=== PATIENT | female | born 1940 | race Caucasian/White ===

== ENCOUNTER 2025-02-17 13:34 | Emergency (ER) | payer MEDICARE, BC, SELFPAY ==
--- OUTSIDE RECORDS SUMMARY | 2025-02-17 13:37 | XMS_ITS ---
Author Organization [facility] Care Team Providers Care Senior Assistant Manager Name Role Phone Roger Krueger Unavailable Unavailable Allergies and adverse reactions No Known Allergies Care Team Name Role Address Phone Organization Dates [place] , [address], [place] (Office): : : : [facility] 10/22/2014 - 10/30/2014 Immunizations Immunization Status Vaccine Details Vaccine Code CodeSystem Date Notes TB 1 Step Mantoux (PPD) completed tuberculin skin test; unspecified formulation lotNumber: [id number] expiry: 01/25/2016 Mfg: [employer] Given 0.1 ml Left Forearm intradermally 98 CVX created date: 10/23/2014 consent date: 10/23/2014 administer ed date: 10/23/2014 Educated by roberto on 10/22/2014 Mental Status Section Date Assessment Total Score Description 10/30/2014 BIMS 15 cognitively int act PHQ-9 02 minimal depress ion 10/29/2014 BIMS 15 cognitively int act PHQ-9 02 minimal depress ion Reason for Referral No Reasons for Referral Entered Social History Social History Observation Description Start Date End Date Code Code System Current Smoking Status Tobacco smoking consumption unknown [id number] SNOMED CT Sex Assigned At Female 1940 25845-2 [facility] Gender Identity Vital Signs Code Code System Vitals Name Values and Units Timing Information 19629-0 [facility] Pain Level Value=5.0 10/30/2014 8462-4 [facility] Blood Pressure-Diastolic Value=75 Un its=mmHg 10/30/2014 8480-6 [facility] Blood Pressure-Systolic Zlgje=880 Un its=mmHg 10/30/2014 8867-4 [facility] Heart rate Value=76.0 Units=/min 02/2015 2339-0 [facility] Blood Sugar Pkaud=905.0 Units=mg/dL 10/29/2014 69641-3 [facility] Weight Dxpgr=642.2 Units=Lbs 12/2014 9279-1 [facility] Respiratory Rate Value=20.0 Units=/m in 10/23/2014 8310-5 [facility] Body Temperature Value=98.4 Units= F 10/23/2014 62066-0 [facility] O2 % BldC Oximetry Value=98.0 Units= % 10/23/2014 8302-2 [facility] Height Value=60.0 Units=Inches 10/22/2014
--- OUTSIDE RECORDS SUMMARY | 2025-02-17 13:37 | XMS_ITS | Clinical Summary ---
Author Organization [facility] Address [address] [place] [address] Care Team Providers Care Laboratory Helper Name Role Phone Alex Lock MD Unavailable [phone] Emmy Stoddard MD Unavailable + Lewis Mann MD Primary Care Provider + Roberto Jung MD Unavailable Allergies No known active allergies Medications ASPIRIN 81 MG TAB, DELAYED RELEASE take 1 tab daily 0 0 9 Active MICROLET LANCET use with testing 100 3 9 Active ferrous sulfate, 65 mg elemental, tabletIndications: Anemia, unspecified Take 1 tablet by mouth once daily with a meal. 90 tablet 2 6 Active blood-glucose meterIndications:T ype 2 diabetes mellitus without complication (HC) Dispense meter, test strips, lancets covered by pt ins. E11.9 NIDDM type II - Test 1 time/day 1 Device 0 6 Active cyanocobalamin (VITAMIN B-12) 1,000 mcg tablet Take 1 tablet by mouth once daily. 0 8 Active cholecalciferol (VITAMIN D3) 1,000 unit tablet Take 1 Tablet (1,000 units) by mouth once daily. 0 2 Active blood sugar diagnostic (Contour Next Test Strips) stripIndications:T ype 2 diabetes mellitus without complication, without long-term current use of insulin (HC) USE DIRECTED TO TEST 1 TIME PER DAY 100 Each 3 4 Active cranberry fruit (Cranberry) 450 mg tablet Take by mouth. Active latanoprost (XALATAN) 0.005 % ophthalmic solutionIndication s:Open angle with borderline findings, low risk, bilateral Place 1 Drop into both eyes at bedtime. 7.5 mL 3 4 Active metFORMIN (GLUCOPHAGE) 500 mg tabletIndications: Type 2 diabetes mellitus without complication, without long-term current use of insulin (HC) TAKE ONE TABLET BY MOUTH TWICE A DAY WITH MEALS 180 Tablet 3 4 Active glimepiride (AMARYL) 2 mg tabletIndications: Type 2 diabetes mellitus with other ophthalmic complication, without long-term current use of insulin (HC) Take 1 Tablet (2 mg) by mouth once daily with a meal. 90 Tablet 3 4 Active atorvastatin (LIPITOR) 10 mg tabletIndications: Dyslipidemia, goal LDL below 100 Take 1 Tablet (10 mg) by mouth at bedtime. 90 Tablet 3 4 Active CPAPIndications:OS A (obstructive sleep apnea) CPAP machine for home use at 12 cmw pressure full face mask x1/3month with a full face cushion x1/mo 1 Each 11 4 Active furosemide 20 mg tabletIndications: Venous insufficiency (chronic) (peripheral) Take 1 Tablet (20 mg) by mouth once daily in the morning. 30 Tablet 5 5 Active azaTHIOprine 50 mg tabletIndications: Polymyositis (HC) TAKE TWO AND ONE-HALF TABLETS BY MOUTH EVERY MORNING 225 Tablet 5 Active traMADoL 50 mg tabletIndications: Arthritis of right hip,Chronic right hip pain Take 0.5-1 Tablets (25-50 mg) by mouth every 8 hours if needed for Pain. 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, negative antimitochondrial antibody, antismooth muscle antibody Hepatitis C 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 fatty liver too, diabetic Vitamin D deficiency 05/15/2010 Venous insufficiency (chronic) (peripheral) 04/26 CKD (chronic kidney disease) stage 3, GFR 30-59 ml/min 09/07/2009 OA (osteoarthritis) of knee 06/07/2009 HTN (hypertension) 12/22/2008 Overview (11/08/2009): Updated by system to replace inactive record 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 Overview (12/06/2008): Surgery 2000, patient states benign Unspecified sleep apnea 12/06/2008 Overview (12/06/2008): On cpap Resolved Problems Problem Noted Date Diagnosed Date Resolved Date Venous stasis ulcer 02/15/2021 03/07/20 22 rat exterminator (current) use of anticoagulants 06/01/2011 12/13/2011 Exogenous obesity 06/07/2009 03/11/2012 Family history of malignant neoplasm of gastrointestinal tract 01/11/2009 05/18/2011 Overview (09/08/2014): Colonoscopy 12/2008 normal repeat in 5 years Colonoscopy 08/2014 inflammatory poly, no follow up needed Diabetes mellitus type II 12/22/2008 Overview (10/13/2013): a system change updated this record. This will not affect patient care or billing. This comment can be deleted. Glucose intolerance 12/06/2008 12/23/19 09 Encounters Date Type Department Care Team Description 02/08/2025 1:00 PM CDT Office Visit [facility] [address] [place] [address] Panfilo Olmedo MD Musculoskeletal Problem (Consultation for right hip pain) 02/08/2025 Travel 01/25/2025 11:00 AM CDT Office Visit [facility] [address] [place] [address] Alex Lock MD Follow Up (Last Seen 06/17/24. ) 01/24/2025 Travel 01/07/[address] [facility] [address] [place] [address] Dany Zaldivar MD Abnormal Lab Results (Critical CK) 01/06/2025 3:15 PM CDT Orders Only [facility] [address] [place] [address] Lab, [place] Lab 01/06/2025 Travel 01/05/[address] [facility] [address] [place] [address] Alex Lock MD Lab 12/09/2024 2:05 PM CDT Office Visit [facility] [address] [place] [address] Lewis Mann MD Medicare ANNUAL (subsequent) Visit (84 year old female, edema in feet and ankles) 12/09/2024 Travel from Last 3 Months Immunizations Immunization Administration Dates Next Due COVID-19 vaccine (Pfizer-Bio NTech 30mcg/0.3mL) 12YO+ BIVALENT PF, MDV 06/05/2022 COVID-19 vaccine (Pfizer-Bio NTech 30mcg/0.3mL) 12YO+ RAUL-SUCROSE PF, MDV 10/03/2021 COVID-19 vaccine (Pfizer-BioNTech 30mcg/0.3mL) P F, MDV 11/01/2020,10/11/2020 Pneumococcal Poly,23-Valent (Pneumovax) 01/04/20 06 Pneumococcal conj 13-Valent (Prevnar 13) 016 Td (Age >=7 Years) 10/22/2000 Tuberculin Skin Test, Unspecified 10/22/2014 Zoster (Zostavax-ZVL, live) 08/01/2010 Family History Medical History Relation Name Comments Diabetes Father Stroke Father Rheum arthritis Grandchild Cancer-breast Maternal Aunt x2 Cancer-colon Mother @ age 83 Anesthesia Problem No Family History Relation Name Status Comments Daughter 1 Alive Daughter 2 Alive Daughter 3 Alive Daughter 4 Alive Daughter 5 Father Grandchild Maternal Aunt x2 Alive Mother Social History Tobacco Use Types Packs/Day Years Used Date Smoking Tobacco: Never Smokeless Tobacco: Never Tobacco Cessation:Counseling Given: Yes Alcohol Use Standard Drinks/Week Comments Yes 0 (1 standard drink = 0.6 oz pur e alcohol) rarely PHQ-2 Answer Date Recorded PHQ-2 TOTAL SCORE 0 12/09/2024 Social Connections Answer Date Recorded Do you often feel lonely or isolated from those around you? 0 06/16/2024 Financial Resource Strain Answer Date R ecorded Difficulty of Paying Living Expenses 3 06/16/2024 Difficulty of Paying Living Expenses Not on file 06/16/2024 Food Insecurity Answer Date Recorded Do you worry your food will run out before you are able to buy more? 1 06/16/2024 Transportation Needs Answer Date Record ed Does lack of transportation keep you from medica l appointments? 1 06/16/2024 Does lack of transportation keep you from work, meetings or getting things that you need? 1 06/16/2024 Housing Stability Answer Date Recorded What is your housing situation today? 1 06/16/2024 Utilities Answer Date Recorded Do you have trouble paying f or utilities (for example, heat, electricity, water, phone)? 1 06/16/2024 Comments No Sex and Gender Information Value Date Recorded Sex Assigned at Not on file Legal Sex Female 5:24 AM INSPECTOR Gender Identity Not on file Sexual Orientation Not on file Occupation Industry Job Start Date Job End Date RETIRED Not on file Not on file Not on file Obstetrics History Para Term AB IAB SAB Ectopic Multiple Livin g Live Births 1 Date Outcome GA Total Labor Labor/2nd/3rd Weight Sex Type Anes PTL Kaleigh A1 A5 Name Clin Last Filed Vital Signs Vital Sign Reading Time Taken Comments Blood Pressure 144/63 02/08/2025 1:10 PM CDT Pulse 50 02/08/2025 1:10 PM CDT Temperature 37.3 C (99.2 F) 02/08/2025 1:10 PM CDT Respiratory Rate 16 01/25/2025 11:11 AM CDT Oxygen Saturation 96% 02/08/2025 1:10 PM CDT Inhaled Oxygen Concentration - - Weight 105.2 kg (232 lb) 02/08/2025 1:10 PM CDT Height 155.1 cm (5' 1.06) 06/22/2024 2:17 PM CD T Body Mass Index 43.75 06/22/2024 2:17 PM CDT Plan of Treatment Upcoming Encounters Date Type Department Care Team (Late st Contact Info) Description 03/09/2025 11:20 AM CDT Office Visit [facility] [address] [place] [address] Panfilo Olmedo MD [address] [place] [address] 03/17/2025 11:15 AM CDT Orders Only [facility] [address] [place] [address] Lab, [place] Health Maintenance Due Date Last Done Comments Tdap 1951 Zoster (shingles) series for age 50+ (1 of 2) 09/26/2010 08/01/2010 Tetanus booster 10/22/2010 10/22/2000, 10/22/2000 RSV vaccine for adults or (1 - 1-dose 75+ series) 2016 COVID-19 vaccine series ( season) 2024 06/05/2022, 10/03/2021, 11/01/2020, Additional history exists Influenza Vaccine (Season Ended) 2025 BMI (ht and wt on same day) for age 18+ 06/22/2025 06/22/2024, 06/17/2024, 11/21/2023, Additional history exists Depression screening for age 12+ 12/09/2025 12/09/2024, 11/21/2023, 06/05/2022, Additional history exists Medicare Wellness for age 65+ 12/10/2025 12/09/2024, 11/21/2023, 06/05/2022, Additional history exists DEXA/DXA scan for age 65+ Completed 2009, 09/06/2009 (Postponed) Pneumococcal series for age 50+ Completed 07/30/2016, 07/30/2016, 02/23/2006 (Completed outside of [facility]), Additional history exists Hepatitis B series for 19+ Aged Out N o longer eligible based on patient's age to complete this topic Medical Devices Implanted Type Area Maintenance Supervisor 2Nd Shift Device Identifier Shelf Expiration Date Model / Serial / Lot [id number] - [id number] Implanted:Qty : 1 on 02/20/2018 by Catie Durán MD at [facility] Opthalmology Implants Right: Eye H OMAR 05/25/2021 [id number] / / [id number] Description:Alco Aspheric 19 .5D [id number] - [id number] Implanted:Qty : 1 on 03/06/2018 by Catie Durán MD at [facility] Left: Eye 10/23/2022 SA60 / [id number] / N/A Description:OMAR IOL Procedures Procedure Name Priority Date/Time Associated Diagnosis Comments CBC WITH AUTO DIFFERENTIAL Routine 01/06/2025 3:28 PM CDT High risk medication use CK TOTAL Routine 01/06/2025 3:28 PM CDT High risk medication use AST (SGOT) Routine 01/06/2025 3:28 PM CDT High risk medication use ALT (SGPT) Routine 01/06/2025 3:28 PM CDT High risk medication use CREATININE Routine 01/06/2025 3:28 PM CDT High risk medication use POTASSIUM Routine 01/06/2025 3:20 PM CDT CKD (chronic kidney disease) stage 4, GFR 15-29 ml/min (HC) Venous insufficiency (chronic) (peripheral) URINE ALBUMIN TO CREATININE RATIO, RANDOM Routine 12/09/2024 4:03 PM CDT Type 2 diabetes mellitus with other ophthalmic complication, without long-term current use of insulin (HC) HEMOGLOBIN A1C MONITORING (POCT) Routine 12/09/2024 3:46 PM CDT Type 2 diabetes mellitus with other ophthalmic complication, without long-term current use of insulin (HC) CBC WITH AUTO DIFFERENTIAL Routine 12/09/2024 3:45 PM CDT Medicare annual wellness visit, subsequent BASIC METABOLIC PANEL Routine 12/09/2024 3:45 PM CDT HTN (hypertension) LIPID PANEL W REFLEX MEASURED LDL Routine 12/09/2024 3:45 PM CDT Type 2 diabetes mellitus with other ophthalmic complication, without long-term current use of insulin (HC) VITAMIN D 25 (DEFICIENCY) Routine 12/09/2024 3:45 PM CDT Vitamin D deficiency XR DXA BONE DENSITY 2 SITES AXIAL Routine 11/01/2009 9:09 AM INSPECTOR Unspecified Osteoporosis from Last 3 Months or Most Recently Relevant to Health Maintenance Results * (ABNORMAL) CREATININE (01/06/2025 3:28 PM CDT) CREATININE 2.00(H) 0.60 - 0.95 mg/dL [facility] EGFR 24(L) > OR = 60 mL/min/1.73 m2 [facility] Blood BLOOD SPECIMEN / Unknown 01/06/2025 3:28 PM CDT 01/06/2025 3:29 PM CDT us Alex Lock MD CHEMISTRY Final Resul t [facility] [address] [place] [address], [facility] [address] [place] [address] * (ABNORMAL) CBC AND DIFFERENTIAL (01/06/2025 3:28 PM CDT) Only the most recent of2 resultswithin the time period is included. WHITE BLOOD CELL COUNT 6.4 3.8 - 10.8 Thousand/u L [facility] RED BLOOD CELL COUNT 3.57(L) 3.80 - 5.10 Million/uL [facility] HEMOGLOBIN 11.4(L) 11.7 - 15.5 g/dL [facility] HEMATOCRIT 35.0 35.0 - 45.0 % [facility] MCV 98.0 80.0 - 100.0 fL [facility] MCH 31.9 27.0 - 33.0 pg [facility] MCHC 32.6 32.0 - 36.0 g/dL [facility] Comment: For adults, a slight decrease in the calculated MCHC value (in the range of 30 to 32 g/dL) is most likely not clinically significant; however, it should be interpreted with caution in correlation with other red cell parameters and the patient's clinical condition. RDW 14.9 11.0 - 15.0 % [facility] PLATELET COUNT 165 140 - 400 Thousand/u L [facility] MPV 10.9 7.5 - 12.5 fL [facility] ABSOLUTE NEUTROPHILS 5,069 1,500 - 7,800 cells/uL [facility] ABSOLUTE LYMPHOCYTES 723(L) 850 - 3,900 cells/uL [facility] ABSOLUTE MONOCYTES 416 200 - 950 cells/uL [facility] ABSOLUTE EOSINOPHILS 160 15 - 500 cells/uL [facility] ABSOLUTE BASOPHILS 32 0 - 200 cells/uL [facility] NEUTROPHILS 79.2 % [facility] LYMPHOCYTES 11.3 % [facility] MONOCYTES 6.5 % [facility] EOSINOPHILS 2.5 % [facility] BASOPHILS 0.5 % [facility] Blood BLOOD SPECIMEN / Unknown 01/06/2025 3:28 PM CDT 01/06/2025 3:29 PM CDT us Alex Lock MD HEMATOLOGY Final Resul t Performing Organization Address [facility]/ZIP Co de Phone Number [facility] [address] [place] [address], [place] [phone] [facility] [address] [place] [address] * (ABNORMAL) ALT (SGPT) (01/06/2025 3:28 PM CDT) ALT 30(H) 6 - 29 U/L [facility] Blood BLOOD SPECIMEN / Unknown 01/06/2025 3:28 PM CDT 01/06/2025 3:29 PM CDT us Alex Lock MD CHEMISTRY Final Resul t Performing Organization Address [facility]/ZIP Co de Phone Number [facility] [address] [place] [address], [place] [phone] [facility] [address] [place] [address] * AST (SGOT) (01/06/2025 3:28 PM CDT) AST 32 10 - 35 U/L [facility] Blood BLOOD SPECIMEN / Unknown 01/06/2025 3:28 PM CDT 01/06/2025 3:29 PM CDT us Alex Lock MD CHEMISTRY Final Resul t Performing Organization Address City/[facility]/ZIP Co de Phone Number [facility] [address] [place] [address], [place] [phone] [facility] [address] [place] [address] * (ABNORMAL) CK TOTAL (01/06/2025 3:28 PM CDT) CREATINE KINASE, TOTAL 2,008(H) 16 - 215 U/L [facility] Comment: Verified by repeat analysis. Blood BLOOD SPECIMEN / Unknown 01/06/2025 3:28 PM CDT 01/06/2025 3:29 PM CDT us Alex Lock MD CHEMISTRY Final Resul t [facility] [address] [place] [address], [place] [phone] [facility] [address] [place] [address] * POTASSIUM (01/06/2025 3:20 PM CDT) Pathologist [facility] POTASSIUM 4.5 3.5 - 5.3 mmol/L [facility] Blood BLOOD SPECIMEN / Unknown 01/06/2025 3:20 PM CDT 01/06/2025 3:21 PM CDT us Lewis Mann MD CHEMISTRY Final Re sult [facility] [address] [place] [address], [place] [phone] [facility] [address] [place] [address] * (ABNORMAL) URINE ALBUMIN TO CREATININE RATIO, RANDOM (12/09/2024 4:03 PM CDT) Pathologist [facility] ALB RAND URINE 78.9 mg/L 12/09/2024 11:09 PM CDT [facility] CREATININE,URIN E 1.24 g/L 12/09/2024 11:09 PM CDT [facility] ALBUMIN TO CREATININE RATIO,RAND UR 63.6(H) <30.0 mg/g creat 12/09/2024 11:09 PM CDT [facility] Urine URINE SPECIMEN / Unknown Non-Blood / Unknown 12/09/2024 4:03 PM CDT 12/09/2024 4:03 PM CDT Narrative [facility] - 12/09/2024 11:09 PM CDT If Albumin to Creatinine Ratio is elevated, consider the following: Elevations seen with incipient nephropathy associated with diabetes mellitus or hypertension. Stress, exercise,hematuria, and urinary tract infection may also produce elevated results. If clinically indicated, confirm with 24 Hour Albumin to Creatinine Ratio. Lewis Mann MD URINE Final Re sult [facility] [address] [place] [address], * (ABNORMAL) HEMOGLOBIN A1C MONITORING (POCT) (12/09/2024 3:46 PM CDT) POC HEMOGLOBIN A1C 6.9(H) <6.0 % OF TOTAL HGB [facility] Comment: Any point of care results exhibiting inconsistency with the patient's clinical status should be repeated using a different testing method. Blood BLOOD SPECIMEN / Unknown 12/09/2024 3:46 PM CDT 12/09/2024 3:47 PM CDT Narrative [facility] - 12/09/2024 4:07 PM CDT FASTING:NO FASTING: NO Lewis Mann MD CHEMISTRY Final Re sult Performing Organization Address City/[facility]/ZIP Co de Phone Number [facility] [address] [place] [address], [facility] [address] [place] [address] * (ABNORMAL) LIPID PANEL W REFLEX MEASURED LDL (12/09/2024 3:45 PM CDT) CHOLESTEROL, TOTAL 161 <200 mg/dL [facility] HDL CHOLESTEROL 44(L) > OR = 50 mg/dL [facility] TRIGLYCERIDES 271(H) <150 mg/dL [facility] Comment: If a non-fasting specimen was collected, consider repeat triglyceride testing on a fasting specimen if clinically indicated. Ugo et al. J. of Clin. Lipidol. 2015;9:129-169. LDL-CHOLESTEROL 81 mg/dL (calc) [facility] Comment: Reference range: <100 Desirable range <100 mg/dL for primary prevention; <70 mg/dL for patients with CHD or diabetic patients with > or = 2 CHD risk factors. LDL-C is now calculated using the Fausto-Mccullough calculation, which is a validated novel method providing better accuracy than the Friedewald equation in the estimation of LDL-C. Fausto SS et al. JESICA. 2013;310(19): 8119-2803 (http://education.[employer]/faq/JUI601) CHOL/HDLC RATIO 3.7 <5.0 (calc) [facility] NON HDL CHOLESTEROL 117 <130 mg/dL (calc) [facility] Comment: For patients with diabetes plus 1 major ASCVD risk factor, treating to a non-HDL-C goal of <100 mg/dL (LDL-C of <70 mg/dL) is considered a therapeutic option. Blood BLOOD SPECIMEN / Unknown 12/09/2024 3:45 PM CDT 12/09/2024 3:46 PM CDT Narrative [facility] - 12/10/2024 4:56 AM CDT FASTING:NO FASTING: NO Lewis Mann MD CHEMISTRY Final Re sult [facility] [address] [place] [address], [facility] [address] [place] [address] * VITAMIN D 25 (DEFICIENCY) (12/09/2024 3:45 PM CDT) VITAMIN D,25-OH,TOTAL,IA 34 30 - 100 ng/mL [facility] Comment: Vitamin D Status 25-OH Vitamin D: Deficiency: <20 ng/mL Insufficiency: 20 - 29 ng/mL Optimal: > or = 30 ng/mL For 25-OH Vitamin D testing on patients on D2-supplementation and patients for whom quantitation of D2 and D3 fractions is required, the QuestAssureD(TM) 25-OH VIT D, (D2,D3), LC/MS/MS is recommended: order code 82536 (patients >2yrs). See Note 1 Note 1 For additional information, please refer to http://education.[employer]/faq/WQI775 (This link is being provided for informational/ educational purposes only.) Blood BLOOD SPECIMEN / Unknown 12/09/2024 3:45 PM CDT 12/09/2024 3:46 PM CDT Narrative [facility] - 12/10/2024 5:19 AM CDT FASTING:NO FASTING: NO Lewis Mann MD SEND OUTS Final Re sult [facility] [address] [place] [address], [facility] [address] * (ABNORMAL) BASIC METABOLIC PANEL (12/09/2024 3:45 PM CDT) [facility] GLUCOSE 91 65 - 139 mg/dL [facility] Comment: Non-fasting reference interval UREA NITROGEN (BUN) 32(H) 7 - 25 mg/dL [facility] CREATININE 1.69(H) 0.60 - 0.95 mg/dL [facility] EGFR 30(L) > OR = 60 mL/min/1.7 3m2 [facility] BUN/CREATININE RATIO 19 6 - 22 (calc) [facility] SODIUM 141 135 - 146 mmol/L [facility] POTASSIUM 4.8 3.5 - 5.3 mmol/L [facility] CHLORIDE 106 98 - 110 mmol/L [facility] CARBON DIOXIDE 22 20 - 32 mmol/L [facility] ELECTROLYTE BALANCE 13 7 - 17 mmol/L (calc) [facility] CALCIUM 9.6 8.6 - 10.4 mg/dL [facility] Blood BLOOD SPECIMEN / Unknown 12/09/2024 3:45 PM CDT 12/09/2024 3:46 PM CDT Narrative [facility] - 12/10/2024 4:56 AM CDT FASTING:NO FASTING: NO Lewis Mann MD CHEMISTRY Final Re sult [facility] [address] [place] [address], [facility] [address] [place] [address] * XR DEXA BONE DENSITY 2 SITES (11/01/2009 9:09 AM INSPECTOR) Anatomical Region Laterality Modality Spine, HIPS, HIPL, HIPR Other 11/01/2009 9:09 AM INSPECTOR Narrative 11/03/2009 2:23 PM INSPECTOR Please see scanned document for results of this study. Procedure Note Chasity Coker - 11/10/2009 Please see scanned document for results of this study. 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 POLST 10/28/2017 11:24 AM FERNANDO DARRON, 10/01/17 * Full Code (Latest Code Status on File) Date Activated Date Inactivated Comments 03/06/2018 7:18 AM 03/06/2018 12:15 PM * Full Code Date Activated Date Inactivated Comments 02/20/2018 7:04 AM 02/20/2018 11:12 AM * Full Code Date Activated Date Inactivated Comments 07/17/2017 2:18 PM 08/06/2017 12:17 PM Question Answer Comments Code Status Discussion: Per Existing Order * Full Code Date Activated Date Inactivated Comments 07/12/2017 5:44 PM 07/17/2017 2:18 PM Care Teams Laboratory Helper Relationship Specialty Start Date End Date Votel, Lewis Sandoval MD [address] [place] [address] PCP - General Family Practice 03/16/21 Alex Lock MD [address] [facility] [address] [place] [address] Rheumatology Rheumatology 05/15/17 Emmy Stoddard MD [address] [place] [address] Gastroenterology Gastroenterology 05/15/17 Roberto Jung MD [address] [place] [address] Sleep Medicine 10/16/22
[2025-02-17 13:46] VITALS: BP 140/53; PULSE 52; RESP 18; TEMP 36.2; O2SAT 99; BMI 35.4
--- NOTE | 2025-02-17 13:48 | ED.GENADULT ---
HPI - General Adult General Chief complaint: Hip Injury/Pain Stated complaint: Fall Time Seen by Provider: 02/17/25 13:42 History of Present Illness HPI narrative: 84 yo F brought to the ER today by EMS. She has a past medical his hypertension, type 2 diabetes, elevated BMI, chronic venous insufficiency, parotid tumor, osteoarthritis of her knee, polymyositis, sleep apnea, chronic kidney disease. She takes baby aspirin. She is on Lasix, glimepiride, metformin, azathioprine. She is not anticoagulated. She is of being brought in for evaluation of right hip pain after a ground level fall. She was cleaning out an office with her daughter. She was pushing an office chair when it ?got away from her?. She does have some pre-existing arthritis in her hip but pain is much worse than that today. She is not able to stand on her move it or bear weight. She did not hit her head. Patient says that she was pushing an office chair forward and was caught again some toes that she was stacking clean on her office. When the chair abruptly broke loose from the [place] that slid forward and she was not able to keep up with that so she fell forward and landed on the ground. She normally walks with a walker for balance. Her daughter saw her fall and noticed that is kind of a slow fall where she 1st landed on her knee and then fell onto her right side. She did not hit her head, her her neck, injure her ribs or back. Related Data Home Medications ?Medication ?Instructions ?Recorded ?Confirmed atorvastatin 10 mg tablet 10 mg PO DAILY 02/17/25 02/17/25 azathioprine 50 mg tablet PO 02/17/25 furosemide 20 mg tablet 20 mg PO DAILY 02/17/25 02/17/25 glimepiride 2 mg tablet 2 mg PO DAILY 02/17/25 02/17/25 latanoprost 0.005 % eye drops drp ophthalmic (eye) 02/17/25 metformin 500 mg tablet 500 mg PO BID 02/17/25 02/17/25 tramadol 50 mg tablet PO 02/17/25 Allergies Allergy/AdvReac Type Severity Reaction Status Date / Time No Known Drug Allergies Allergy Verified 02/17/25 13:39 Exam Narrative: Exam Narrative: Constitutional: Appears well-developed and well-nourished. Alert. Conversant. Non toxic. HENT: Head: Atraumatic. Nose: Nose normal. Mouth/Throat: Oral mucosa is clear and moist. no trismus. Pharynx normal. Tonsils symmetric. No tonsillar enlargement, erythema, or exudate. Eyes: Conjunctivae normal. EOM normal. Pupils equal, round, and reactive to light. No scleral icterus. Neck: Normal range of motion. Neck supple. No tracheal deviation present. Cardiovascular: Normal rate, regular rhythm. No gallop. No friction rub. No murmur heard. Symmetric radial artery pulses Pulmonary/Chest: Effort normal. No stridor. No respiratory distress. No wheezes. No rales. No rhonchi . No tenderness. Abdominal: Soft. Bowel sounds normal. No distension. No mass. No tenderness. No rebound. No guarding. Musculoskeletal: No C, T, L-spine tenderness. Pelvis is stable. RUE: Normal range of motion. No tenderness. No deformity LUE: Normal range of motion. No tenderness. No deformity RLE: Right mild hip tenderness. No deformity or rotation. She does have a slight amount of greenish bruising her right anterior thigh which is probably from an injury from couple of days ago. No other bruising or deformity. Range of motion the hip is limited to about 15? of flexion by pain. Femoral shaft, distal femur, knee, reyes, ankle, foot are normal save for a small dime-sized skin tear on the right anterior reyes. Normal range of motion. No deformity LLE: Normal range of motion. No tenderness. No deformity She has symmetric bilateral lower extremity edema with chronic skin changes from chronic lymphedema. Neurological: Alert and oriented to person, place, and time. Normal strength. CN II-VII intact. No sensory deficit. GCS eye subscore is 4. GCS verbal subscore is 5. GCS motor subscore is 6. Normal coordination intact distal neurovascular function to both feet including toe wiggling and sensation. Strong DP pulses. Normal cap refill. Skin: Skin is warm and dry. No rash noted. No pallor. Normal capillary refill. Psychiatric: Normal mood. Normal affect. Const: Vital Signs, click to edit/add: Vital Signs - 24 hr 02/17/25 13:46 02/17/25 14:12 02/17/25 14:15 Temperature 97.1 F L Pulse Rate 68 65 Pulse Rate [Pulse Oximeter] 52 L Respiratory Rate 18 18 Blood Pressure Blood Pressure [Ri ght Upper Arm] 140/53 H Pulse Oximetry 99 96 97 Oxygen Delivery Me thod Room Air 02/17/25 14:30 02/17/25 15:00 02/17/25 15:02 Temperature Pulse Rate 58 L 60 67 Pulse Rate [Pulse Oximeter] Respiratory Rate 14 16 Blood Pressure 146/67 H Blood Pressure [Ri ght Upper Arm] Pulse Oximetry 96 97 97 Oxygen Delivery Me thod Course Course ED Course: Recheck-patient back from x-ray. After pain meds she is able to range her hip pattern is not able to flex to about 45?. She needs to go to the bathroom. With the assistance of myself and our nurse we really get her standing at the bedside and she was actually able to walk bleeding on a wheelchair for balance in the hallway. She is bearing weight well and lifting the right leg normally. Vital Signs Vital signs: Initial Vital Signs Temperature 97.1 F L 02/17/25 13:46 Temperature Source Temporal Artery Scan 02/17/25 13:46 Pulse Rate 52 L 02/17/25 13:46 Respiratory Rate 18 02/17/25 13:46 Blood Pressure 140/53 H 02/17/25 13:46 Blood Pressure Mean 82 02/17/25 13:46 Blood Pressure Position Sitting 02/17/25 13:46 Pulse Oximetry 99 02/17/25 13:46 Oxygen Delivery Method Room Air 02/17/25 13:46 Vital Signs Temperature 97.1 F L 02/17/25 13:46 Pulse Rate 52 L 02/17/25 13:46 Respiratory Rate 18 02/17/25 13:46 Blood Pressure 140/53 H 02/17/25 13:46 Pulse Oximetry 99 02/17/25 13:46 Oxygen Delivery Method Room Air 02/17/25 13:46 Temperature 97.1 F L 02/17/25 13:46 Pulse Rate 67 02/17/25 15:02 Respiratory Rate 16 02/17/25 15:02 Blood Pressure 146/67 H 02/17/25 15:02 Pulse Oximetry 97 02/17/25 15:02 Oxygen Delivery Method Room Air 02/17/25 13:46 Medications Administered Medications: Discontinued Medications Generic Name Dose Route Start Last Admin Trade Name Freq PRN Reason Stop Dose Admin Fentanyl 25 mcg 02/17/25 14:01 02/17/25 14:16 Fentanyl 100 Mcg/2 Ml Inj IVP 02/17/25 14:02 25 mcg ONCE ONE Administration Ondansetron HCl 4 mg 02/17/25 14:01 02/17/25 14:16 Ondansetron 2 Mg/Ml Inj IVP 02/17/25 14:02 4 mg ONCE ONE Administration Medical Decision Making MDM Narrative Medical decision making narrative: Very pleasant 84-year-old female presenting to the ER today by EMS after she had a ground level fall leading to right hip pain. Although she hurt her right hip she denies any other significant injuries. Specifically she did not hit her head, injure her neck. No chest pain or trouble breathing. No back pain. On my initial exam she was having some hip pain with limited range of motion but no definitive deformity. X-rays of the patient's right hip and pelvis are obtained and show significant arthritis in the right hip but no evidence for any displaced fracture. On my interpretation of the x-ray, consider possible nondisplaced subcapital femoral neck fracture. However on clinical exam the patient's pain is much improved after 25 mcg of fentanyl she is able to ambulate steadily and rapidly in the hallway. Based on clinical grounds with her ability to ambulate improved range of motion have much lower suspicion for active fracture. Patient is eager for discharge home with her family. Would recommend outpatient follow-up with the ER or ortho clinic if she has ongoing pain over the next couple of days. Precautions for return to the ER reviewed. Imaging Data XR right hip and pelvis: Attestation: I have reviewed the pertinent imaging results. My impression: Possible nondisplaced subcapital femoral neck fracture. Awaiting radiology read. Radiologist's impression: Impression: No evidence of acute fracture. Discharge Plan Discharge Clinical Impression: Acute pain of right hip Patient Disposition: Home, Self-Care Instructions: Hip Pain (ED) Additional Instructions: As we discussed, your x-rays look good the radiologist. Nothing broken. However I want you to monitor your condition carefully. If you have worsening pain or trouble walking and your hip, please return to the ER right away for re-evaluation. If your pain is not worse but is not improving, you can follow-up with the [place] [facility] for re-evaluation. You can call [phone] to schedule an ER follow-up visit. It is okay to use Tylenol if needed for pain. Continue on your other regular medications. Good luck! Prescriptions: No Action latanoprost 0.005 % drops ophthalmic (eye) metformin 500 mg tablet 500 mg PO BID atorvastatin 10 mg tablet 10 mg PO DAILY azathioprine 50 mg tablet PO tramadol 50 mg tablet PO glimepiride 2 mg tablet 2 mg PO DAILY furosemide 20 mg tablet 20 mg PO DAILY Follow Up/Referrals: Lewis Mann MD [Primary Care Provider, Family Practice] Stand Alone Forms: [employer] Info Instructions
--- NOTE | 2025-02-17 14:00 | CRLHL7_ITS ---
For Patients: As a result of the Century Cures Act, medical imaging exams and procedure reports are released immediately into your electronic medical record. You may view this report before your referring provider. If you have questions, please contact your health care provider. Indication: Ground level fall, right hip pain, seems foreshortened Technique: AP hip centered pelvis and right hip 3 views Comparison: None Findings: Joint space narrowing and spurring right hip with near complete loss of the joint space. No femoral neck fracture. Intact pubic rami. Vascular calcifications. Impression: No evidence of acute fracture. Dictated by Richard Galdamez MD @ 02/17/2025 3:14:43 PM (Electronically Signed)
[2025-02-17 14:12] VITALS: PULSE 68; O2SAT 96
[2025-02-17 14:15] VITALS: PULSE 65; RESP 18; O2SAT 97
[2025-02-17] MEDS: fentaNYL 100 MCG/2 ML inj 25 MCG IVP (14:16)
[2025-02-17] MEDS: ONDANSETRON 2 MG/ML inj 4 MG IVP (14:16)
--- OUTSIDE RECORDS SUMMARY | 2025-02-17 14:28 | XMS_ITS ---
Author Organization [facility] Care Team Providers Care Carriage Rider Name Role Phone Roger Krueger Unavailable Unavailable Allergies and adverse reactions No Known Allergies Care Team Name Role Address Phone Organization Dates Roger [place] , [address], [place] (Office): : : : [facility] 10/22/2014 - 10/30/2014 Immunizations Immunization Status Vaccine Details Vaccine Code CodeSystem Date Notes TB 1 Step Mantoux (PPD) completed tuberculin skin test; unspecified formulation lotNumber: [id number] expiry: 01/25/2016 Mfg: [employer] Given 0.1 [...] Current Smoking Status Tobacco smoking consumption unknown [id number] SNOMED CT Sex Assigned At Female 1940 55090-4 [facility] Gender Identity Vital Signs Code Code System Vitals Name Values and Units Timing Information 08915-7 [facility] Pain Level Value=5.0 10/30/2014 8462-4 [facility] Blood Pressure-Diastolic Value=75 Un its=mmHg 10/30/2014 8480-6 [facility] Blood Pressure-Systolic Rmngu=380 Un its=mmHg 10/30/2014 8867-4 [facility] Heart rate Value=76.0 Units=/min 02/2015 2339-0 [facility] Blood Sugar Wmcrk=506.0 Units=mg/dL 10/29/2014 38453-0 [facility] Weight Ujlos=907.2 Units=Lbs 12/2014 9279-1 [facility] Respiratory Rate Value=20.0 Units=/m in 10/23/2014 8310-5 [facility] Body Temperature Value=98.4 Units= F 10/23/2014 00413-0 [facility] O2 % BldC Oximetry Value=98.0 Units= % 10/23/2014 8302-2 [facility] Height Value=60.0 Units=Inches 10/22/2014
[2025-02-17 14:30] VITALS: PULSE 58; RESP 14; O2SAT 96
[2025-02-17 15:00] VITALS: PULSE 60; O2SAT 97
[2025-02-17 15:02] VITALS: BP 146/67; PULSE 67; RESP 16; O2SAT 97
== END 2025-02-17 15:59 | disposition home or self-care (01) ==
PROVIDERS: Emergency Provider Emergency Medicine; PCP Family Medicine
DX: M25.551 Pain in right hip (principal); W18.30XA Fall on same level, unspecified, initial encounter
CPT/HCPCS: 73502; 94761; 96374; 96375; 99283; 99284; J2405; J3010

== ENCOUNTER 2025-03-09 10:56 | Outpatient (CLI) | payer MEDICARE, BC, SELFPAY | END 2025-03-09 10:57 | disposition home or self-care (01) | LOC: INJ CL 10:58 | PROVIDERS: PCP Family Medicine; Visit Provider Family Medicine | DX: M16.11 Unilateral primary osteoarthritis, right hip (principal); M25.551 Pain in right hip | CPT/HCPCS: 20610; 77002; J0702; Q9966 ==